=== PATIENT | female | born 1965 | race Caucasian/White ===

== ENCOUNTER 2019-06-15 23:18 | Emergency (ER) | payer OTHER ==
[2019-06-15 23:34] VITALS: TEMP 98.3; BMI 33.0
[2019-06-16] MEDS ORDERED: ONDANSETRON 4 MG/2 ML VIAL IVPB ONE (00:18)
[2019-06-16] MEDS ORDERED: MAG HYDROX/AL HYDROX/SIMETH -MYLANTA- ORAL SUSPENSION PO ONE (00:19)
[2019-06-16] MEDS ORDERED: KETOROLAC TROMETHAMINE 30 MG/1 ML VIAL IVPUSH ONE (00:19)
[2019-06-16] MEDS ORDERED: FAMOTIDINE 20 MG/50 ML IVPB 20 MG/50 ML MG IVPB ONE ×2 (00:19→00:28)
--- NOTE | 2019-06-16 00:26 | PDOC ---
History of Present Illness - General Chief Complaint: Pain, Acute Stated Complaint: ABDOMINAL PAIN - History of Present Illness Initial Comments: 06/16/19 00:21 54 yo F with h/o HTN, DM, who p/w epigastric pain. Patient reports 1 day of unremitting, burning, epigastric pain, worse with PO intake. Pt. also endorses nausea without vomiting, and 10 episodes of loose, watery, non bloody stools. No identifiable alleviators. Pain not improved with Motrin. Denies h/o similiar sx. Patient reports at home sick contact (child) with similar presentation. Patient also endorss tremors, lightheadedness, diaphoresis x 1 day. Denies h/o abdominal surgery. Patient denies BELL, vision change, palpitations, cough, wheezing, orthopena, PND , leg swelling/pain, F,C, CP, SOB, urinary complaints, vaginal discharge/ irritation/burning, hematuria, BPR, constipation, lightheadedness, weakness, sensory changes. PMHx: as noted above. Denies h/o CAD, NV, endoscopy. Does not f/w GI. ROS: as noted SHx: Denies Etoh, IVDA, tobacco use Allergies: NKDA Past History - Past Medical History Allergies/Adverse Reactions: Allergies Allergy/AdvReac Type Severity Reaction Status Date / Time No Known Allergies Allergy Verified 06/15/19 23:32 Home Medications: Ambulatory Orders NK [No Known Home Medication] 06/16/19 - Psycho Social/Smoking Cessation Hx Smoking History: Never smoked Have you smoked in the past 12 months: No Information on smoking cessation initiated: No Hx Alcohol Use: No Drug/Substance Use Hx: No Review of Systems - Review of Systems Comments:: 06/16/19 00:28 GENERAL/CONSTITUTIONAL: No fever or chills. No weakness. HEAD, EYES, EARS, NOSE AND THROAT: No change in vision. No ear pain or discharge. No sore throat. CARDIOVASCULAR: No chest pain or shortness of breath RESPIRATORY: No cough, wheezing, or hemoptysis. GASTROINTESTINAL: + nausea, abdominal pain, diarrhea. No constipation. GENITOURINARY: No dysuria, frequency, or change in urination. MUSCULOSKELETAL: No joint or muscle swelling or pain. No neck or back pain. SKIN: No rash NEUROLOGIC: No vertigo, loss of consciousness, or change in strength/sensation. ENDOCRINE: No increased thirst. No abnormal weight change HEMATOLOGIC/LYMPHATIC: No anemia, easy bleeding, or history of blood clots. ALLERGIC/IMMUNOLOGIC: No hives or skin allergy. *Physical Exam - Vital Signs Last Vital Signs Temp Pulse Resp BP Pulse Ox 98.3 F 92 H 20 137/74 94 L 06/15/19 23:33 06/15/19 23:33 06/15/19 23:33 06/15/19 23:33 06/15/19 23:33 - Physical Exam 06/16/19 00:29 GENERAL: Awake, alert, and fully oriented, in no acute distress HEAD: No signs of trauma, normocephalic, atraumatic EYES: PERRLA, EOMI, sclera anicteric, conjunctiva clear ENT: Hearing grossly normal, nares patent, oropharynx clear without exudates. Moist mucosa NECK: Normal ROM, supple, no lymphadenopathy, JVD, or masses LUNGS: No distress, speaks full sentences, clear to auscultation bilaterally HEART: Regular rate and rhythm, normal S1 and S2, no murmurs, rubs or gallops, peripheral pulses normal and equal bilaterally. ABDOMEN: + Epigastric ttp. Soft, NDS, normoactive bowel sounds. No guarding, no rebound. No masses. Neg CVA ttp. EXTREMITIES : Normal inspection, Normal range of motion, no edema. No clubbing or cyanosis NEUROLOGICAL: Cranial nerves II through XII grossly intact. Normal speech, normal gait, no focal sensorimotor deficits SKIN: Warm, Dry, normal turgor, no rashes or lesions noted ED Treatment Course - LABORATORY CBC & Chemistry Diagram: 06/16/19 00:05 06/16/19 00:05 Medical Decision Making - Medical Decision Making 06/16/19 00:25 54 yo F with h/o HTN, DM, who p/w epigastric pain. O2 94 % RA, HR 92, vitals otherwise wnl, AF, A&Ox3. Physical exam notable for epigastric ttp. Denies palpitations, cough, wheezing, leg swelling/pain, F,C, CP, SOB, urinary complaints, hematuria, BPR, constipation, lightheadedness, weakness, sensory changes. ACS/NV r/o. Will consider gastritis, enteritis, colitis, pancreatitis, biliary dz. Will provide IV hydration, anti-emetic, and analgesic control, and reassess. ED Course: Famotidine, Maloox, Toradol, Zofran 06/16/19 04:51 Laboratory Tests 06/16/19 06/16/19 06/16/19 00:05 00:05 00:05 WBC 10.0 Hgb 15.0 Hct 45.2 Plt Count 304 Sodium 139 Potassium 4.0 Anion Gap 5 L BUN 17.3 Lipase 104 Serum , Qual Negative 06/16/19 05:07 Patient pain improved, strep negative, symptoms improved. stable for d/c with return precautions. Discharge - Discharge Information Problems reviewed: Yes Clinical Impression/Diagnosis: Epigastric pain Condition: Stable - Admission No - Follow up/Referral Referrals: Festus Green [Primary Care Provider] - - Patient Discharge Instructions Patient Printed Discharge Instructions: DI for Epigastric Pain Additional Instructions: Please return to the emergency department with any new or worsening symptoms or concerns. Please follow up with your primary care physician within 72 hours. - Post Discharge Activity
[2019-06-16] MEDS ORDERED: KETOROLAC TROMETHAMINE 30 MG/1 ML VIAL ONE (00:28)
[2019-06-16] MEDS ORDERED: ONDANSETRON 4 MG/2 ML VIAL ONE (00:28)
[2019-06-16] MEDS ORDERED: MAG HYDROX/AL HYDROX/SIMETH 30 ML UNIT-DOSE CUP ONE (00:28)
--- NOTE | 2019-06-16 00:28 | PDOC ---
Attending Attestation - Resident Resident Name: Lawson Burks - ED Attending Attestation I have performed the following: I have examined & evaluated the patient, The case was reviewed & discussed with the resident, I agree w/resident's findings & plan - HPI HPI: 06/16/19 03:27 Pt comes with diarrhea and abd pain No other complaints. Pt comes with diarrhea and dry heaves. She caught the stomach virus from her grandson. afebrile here. Pt works as a personal service representative - Physicial Exam PE: 06/16/19 05:07 HEENT normal afebrile [id number] lungs CTA B abd soft NT ND + gassy BS No flank pain No rebound and no guarding. - Medical Decision Making 06/16/19 04:51 cbc and chem normal Flu culture is pending 06/16/19 05:07 Flu negative 06/16/19 05:08 Stable for D/C home Heart Score/ECG Review - ECG Intrepretation Rhythm: Regular Rhythm - Speedwell Speedwell: Normal - P and [place] Prominent R with upright T in V1 (true posterior HI): No Delta Wave(s) Present: No WPW: No - ST and T Early Repolarization: No Non Specific ST-T Wave changes: No - ECG Impressions Normal ECG: Yes Non-specific ST Elevation: No Ischemic Changes: No Bradycardia: No Torsades júnior Pointes: No
[2019-06-16 01:20] LABS: BASO % 0.2 % (0-2.0); EOS % 0.4 % (0-4.5); HEMATOCRIT 45.2 % (32.4-45.2); LYMPH % 5.5 % (8-40); MCH 30.3 pg (25.7-33.7); MCHC 33.1 g/dl (32.0-36.0); MEAN CELL VOLUME 91.6 fl (80-96); MEAN PLT VOLUME 9.3 fl (7.5-11.1); MONO % 5.1 % (3.8-10.2); NEUT % 88.8 % (42.8-82.8); PLATELET COUNT 304 K/MM3 (134-434); RBC 4.93 M/mm3 (3.60-5.2); RDW 13.6 % (11.6-15.6)
[2019-06-16 01:46] LABS: BILIRUBIN,TOTAL 0.6 mg/dL (0.2-1); BLOOD UREA NITROGEN 17.3 mg/dL (7-18); CALCIUM 9.5 mg/dL (8.5-10.1); CREATININE 0.7 mg/dL (0.55-1.3); TOT PROT 8.4 g/dl (6.4-8.2)
[2019-06-16 04:23] VITALS: BP 107/65; PULSE 76
--- NOTE | 2019-06-16 10:47 | EKG ---
Test Reason : Blood Pressure : / mmHG Vent. Rate : 087 BPM Atrial Rate : 087 BPM P-R Int : 164 ms QRS Dur : 090 ms QT Int : 370 ms P-R-T Axes : 037 020 004 degrees QTc Int : 445 ms NORMAL SINUS RHYTHM NONSPECIFIC ST DEPRESSION WHEN COMPARED WITH ECG OF 17-MAR-2016 09:38, NO SIGNIFICANT CHANGE WAS FOUND Confirmed by MERYL FERGUSON MD ([id number]) on 06/16/2019 10:47:28 AM Referred By: Confirmed By:MERYL FERGUSON MD
== END 2019-06-16 05:13 | disposition home or self-care (01) ==
LOC: JER 23:18
PROC: 3E033GC Introduction of Other Therapeutic Substance into Peripheral Vein, Percutaneous Approach (ICD-10-PCS; principal; 2019-06-15)
PROC: 3E033GC Introduction of Other Therapeutic Substance into Peripheral Vein, Percutaneous Approach (ICD-10-PCS; 2019-06-15)
PROC: 3E0333Z Introduction of Anti-inflammatory into Peripheral Vein, Percutaneous Approach (ICD-10-PCS; 2019-06-15)
DX: R10.13 Epigastric pain (principal); I10 Essential (primary) hypertension; E11.9 Type 2 diabetes mellitus without complications
CPT/HCPCS: 36415; 80053; 82550; 83690; 84484; 84703; 85025; 87804; 93005; 93010; 96365; 96375; 99282-25

== ENCOUNTER 2021-11-18 09:27 | Day surgery (SDC) | payer OTHER ==
[2021-11-18] MEDS ORDERED: BUPIVACAINE HCL/PF 2.5 MG/ML - 30 ML VIAL IJ ONE (09:54)
[2021-11-18] MEDS ORDERED: MIDAZOLAM HCL 2 MG/2 ML SINGLE DOSE VIAL ONE (10:46)
[2021-11-18] MEDS ORDERED: PROPOFOL 20 ML ONE ×2 (10:54→11:13)
[2021-11-18] MEDS ORDERED: ceFAZolin SODIUM 1 GM VIAL ONE (10:59)
[2021-11-18] MEDS ORDERED: DEXAMETHASONE SOD PHOSPHATE 4 MG/1 ML VIAL ONE (11:03)
[2021-11-18] MEDS ORDERED: ONDANSETRON 4 MG/2 ML VIAL ONE (11:03)
[2021-11-18 12:09] VITALS: TEMP 97.7
[2021-11-18 12:44] VITALS: BP 123/78; PULSE 81
== END 2021-11-18 12:59 | disposition home or self-care (01) ==
LOC: FASU 09:27
PROVIDERS: ATTEND Orthopaedic Surgery Hand Surgery
PROC: 0RGW07Z Fusion of Right Finger Phalangeal Joint with Autologous Tissue Substitute, Open Approach (ICD-10-PCS; principal; 2021-11-18 11:05)
DX: M19.041 Primary osteoarthritis, right hand (principal)
CPT/HCPCS: 73130-TC-RT-FY; 82962

== ENCOUNTER 2022-04-14 20:16 | Emergency (ER) | payer OTHER ==
[2022-04-14 21:04] VITALS: BP 109/75; PULSE 104; RESP 20; TEMP 98.3; BMI 33.2
[2022-04-14] MEDS ORDERED: LIDOCAINE PATCH REMOVAL MC SCH (22:00)
[2022-04-14] MEDS ORDERED: ACETAMINOPHEN 500 MG TABLET (FP) PO ONE (22:29)
[2022-04-14] MEDS ORDERED: METHOCARBAMOL 500 MG TABLET PO ONE (22:29)
[2022-04-14] MEDS ORDERED: LIDOCAINE 5% TOPICAL PATCH TP ONE (22:29)
[2022-04-14] MEDS ORDERED: METHOCARBAMOL 500 MG TABLET ONE (22:48)
[2022-04-14] MEDS ORDERED: ACETAMINOPHEN 325 MG TABLET (FP) ONE (22:49)
[2022-04-14] MEDS ORDERED: LIDOCAINE 5% TOPICAL PATCH ONE (22:49)
== END 2022-04-15 02:44 | disposition home or self-care (01) ==
LOC: JER 20:16
DX: S39.012A Strain of muscle, fascia and tendon of lower back, initial encounter (principal); X50.0XXA Overexertion from strenuous movement or load, initial encounter
CPT/HCPCS: 72131-TC; 99284-25

== ENCOUNTER 2022-06-19 15:31 | Emergency (ER) | payer OTHER ==
[2022-06-19 15:42] VITALS: BMI 34.0
[2022-06-19] MEDS ORDERED: MAG HYDROX/AL HYDROX/SIMETH 30 ML UNIT-DOSE CUP PO ONE (16:47)
[2022-06-19] MEDS ORDERED: ONDANSETRON 4 MG/2 ML VIAL IVPUSH ONE (16:47)
[2022-06-19] MEDS ORDERED: FAMOTIDINE 20 MG/50 ML IVPB 20 MG/50 ML MG IVPB ONE ×2 (16:47→17:25)
[2022-06-19] MEDS ORDERED: LACTATED RINGERS SOLUTION 1,000 ML/1,000 ML INFUS.BAG IV SCH (17:00)
[2022-06-19] MEDS ORDERED: MAG HYDROX/AL HYDROX/SIMETH 30 ML UNIT-DOSE CUP ONE (17:25)
[2022-06-19] MEDS ORDERED: ONDANSETRON 4 MG/2 ML VIAL ONE (17:25)
[2022-06-19 17:31] LABS: BASO % 0.3 % (0-2.0); EOS % 0.5 % (0-4.5); HEMATOCRIT 48.2 % (32.4-45.2); HEMOGLOBIN 15.9 GM/dL (10.7-15.3); LYMPH % 6.8 % (8-40); MCH 30.1 pg (25.7-33.7); MEAN CELL VOLUME 91.1 fl (80-96); MEAN PLT VOLUME 8.7 fl (7.5-11.1); MONO % 4.1 % (3.8-10.2); NEUT % 88.3 % (42.8-82.8); PLATELET COUNT 313 10^3/uL (134-434); RBC 5.29 M/mm3 (3.60-5.2); RDW 14.1 % (11.6-15.6); WHITE BLOOD COUNT 9.1 K/mm3 (4.0-10.0)
[2022-06-19 17:59] LABS: BILIRUBIN,TOTAL 0.5 mg/dL (0.2-1); CREATININE 0.6 mg/dL (0.55-1.3)
[2022-06-19 18:27] VITALS: BP 112/49; PULSE 80; RESP 16; TEMP 98.3
== END 2022-06-19 18:56 | disposition home or self-care (01) ==
LOC: JER 15:31
PROC: 3E033GC Introduction of Other Therapeutic Substance into Peripheral Vein, Percutaneous Approach (ICD-10-PCS; principal; 2022-06-19)
PROC: 3E033GC Introduction of Other Therapeutic Substance into Peripheral Vein, Percutaneous Approach (ICD-10-PCS; 2022-06-19)
DX: R11.0 Nausea (principal); R10.13 Epigastric pain; R19.7 Diarrhea, unspecified
CPT/HCPCS: 0241U-QW; 36415; 80053; 83690; 84484; 85025; 93005; 93010; 99284-25

== ENCOUNTER 2023-06-17 19:51 | Emergency (ER) | payer OTHER ==
[2023-06-17 19:58] VITALS: BP 120/70; PULSE 97; RESP 18; TEMP 98; BMI 34.0
[2023-06-17] MEDS ORDERED: ONDANSETRON 4 MG/2 ML VIAL IVPB ONE (20:29)
[2023-06-17] MEDS ORDERED: FAMOTIDINE 20 MG/50 ML IVPB 20 MG/50 ML MG IVPB ONE ×2 (20:30→20:43)
[2023-06-17] MEDS ORDERED: ACETAMINOPHEN 1000 MG/100 ML BAG IVPB ONE (20:30)
[2023-06-17] MEDS ORDERED: LACTATED RINGERS SOLUTION 1000 ML INFUS.BAG IV ONE (20:30)
[2023-06-17] MEDS ORDERED: ONDANSETRON 4 MG/2 ML VIAL ONE (20:43)
[2023-06-17] MEDS ORDERED: ACETAMINOPHEN INJECTION 100 ML IVPB ONE (20:43)
[2023-06-17 21:06] LABS: BASO % 0.8 % (0-2.0); EOS % 0.7 % (0-4.5); HEMATOCRIT 44.9 % (32.4-45.2); HEMOGLOBIN 15.4 GM/dL (10.7-15.3); LYMPH % 18.9 % (8-40); MCHC 34.2 g/dl (32.0-36.0); MEAN CELL VOLUME 90.6 fl (80-96); MEAN PLT VOLUME 8.5 fl (7.5-11.1); MONO % 6.4 % (3.8-10.2); NEUT % 73.2 % (42.8-82.8); PLATELET COUNT 322 10^3/uL (134-434); RBC 4.96 M/mm3 (3.60-5.2); RDW 13.6 % (11.6-15.6); WHITE BLOOD COUNT 9.7 K/mm3 (4.0-10.0)
[2023-06-17 21:27] LABS: BLOOD UREA NITROGEN 15.2 mg/dL (7-18); MAGNESIUM 2.1 mg/dL (1.8-2.4)
[2023-06-17 21:30] LABS: CREATININE 0.7 mg/dL (0.55-1.3)
[2023-06-17 21:31] LABS: TOT PROT 8.3 g/dl (6.4-8.2)
[2023-06-17 21:32] LABS: BILIRUBIN,TOTAL 0.4 mg/dL (0.2-1)
== END 2023-06-17 22:37 | disposition home or self-care (01) ==
LOC: JER 19:51 → JERFT 19:51
PROC: 3E033GC Introduction of Other Therapeutic Substance into Peripheral Vein, Percutaneous Approach (ICD-10-PCS; principal; 2023-06-17)
PROC: 3E033GC Introduction of Other Therapeutic Substance into Peripheral Vein, Percutaneous Approach (ICD-10-PCS; 2023-06-17)
PROC: 3E033GC Introduction of Other Therapeutic Substance into Peripheral Vein, Percutaneous Approach (ICD-10-PCS; 2023-06-17)
DX: R10.13 Epigastric pain (principal); R11.2 Nausea with vomiting, unspecified; Z20.822 Contact with and (suspected) exposure to COVID-19
CPT/HCPCS: 0241U-QW; 36415; 80053; 83735; 84100; 84484; 85025; 93005; 93010; 99284-25

== ENCOUNTER 2023-06-18 06:53 | Emergency (ER) | payer OTHER ==
[2023-06-18 07:19] VITALS: BP 118/80; PULSE 89; RESP 20; TEMP 98.6; BMI 33.5
[2023-06-18] MEDS ORDERED: levETIRAcetam 500 MG TABLET (FP) PO ONE (09:08)
[2023-06-18] MEDS ORDERED: ENOXAPARIN NA (PORCINE) 40 MG/0.4 ML DISP.SYRIN SQ ONE (09:08)
[2023-06-18] MEDS ORDERED: SODIUM CHLORIDE 1,000 ML IV STA (09:11)
[2023-06-18] MEDS ORDERED: ONDANSETRON *ODT* 4 MG TABLET SL ONE (09:16)
[2023-06-18] MEDS ORDERED: ONDANSETRON *ODT* 4 MG TABLET ONE (09:22)
== END 2023-06-18 13:20 | disposition home or self-care (01) ==
LOC: JER 06:53
PROC: 3E0337Z Introduction of Electrolytic and Water Balance Substance into Peripheral Vein, Percutaneous Approach (ICD-10-PCS; principal; 2023-06-18)
DX: R11.2 Nausea with vomiting, unspecified (principal); R10.13 Epigastric pain
CPT/HCPCS: 82962; 93005; 93010; 99284-25; Q0162

== ENCOUNTER 2024-02-25 22:38 | Observation (INO) | payer OTHER ==
[2024-02-25 22:48] VITALS: BMI 34.0
[2024-02-26] MEDS ORDERED: ACETAMINOPHEN 325 MG TABLET (FP) ONE (00:23)
[2024-02-26] MEDS: ACETAMINOPHEN 1000 MG/100 ML BAG IVPB ONE (00:24)
[2024-02-26] MEDS: ACETAMINOPHEN 500 MG TABLET (FP) PO ONE (00:30)
[2024-02-26] MEDS ORDERED: METHOCARBAMOL 500 MG TABLET ONE (00:31)
[2024-02-26] MEDS ORDERED: LIDOCAINE 4% PATCH TP ONE (00:32)
[2024-02-26] MEDS: METHOCARBAMOL 500 MG TABLET PO ONE (00:36)
[2024-02-26] MEDS: LIDOCAINE 4% PATCH TP ONE (00:37)
[2024-02-26] MEDS ORDERED: DEXAMETHASONE 4 MG TABLET (FP) ONE (01:41)
[2024-02-26] MEDS: DEXAMETHASONE 4 MG TABLET (FP) PO ONE (01:43)
[2024-02-26] MEDS ORDERED: oxyCODONE HCL 5 MG TABLET ONE (02:57)
[2024-02-26] MEDS ORDERED: ONDANSETRON *ODT* 4 MG TABLET ONE (02:57)
[2024-02-26] MEDS: ONDANSETRON *ODT* 4 MG TABLET SL ONE (03:01)
[2024-02-26] MEDS: oxyCODONE HCL 5 MG TABLET PO ONE (03:01)
[2024-02-26 05:19] LABS: BASO % 0.4 % (0-2.0); EOS % 0.4 % (0-4.5); HEMATOCRIT 45.2 % (32.4-45.2); HEMOGLOBIN 15.2 GM/dL (10.7-15.3); LYMPH % 14.1 % (8-40); MCH 30.7 pg (25.7-33.7); MCHC 33.7 g/dl (32.0-36.0); MEAN CELL VOLUME 91.1 fl (80-96); MEAN PLT VOLUME 8.8 fl (7.5-11.1); MONO % 2.4 % (3.8-10.2); NEUT % 82.7 % (42.8-82.8); PLATELET COUNT 286 10^3/uL (134-434); RBC 4.96 M/mm3 (3.60-5.2); RDW 13.7 % (11.6-15.6); WHITE BLOOD COUNT 8.3 K/mm3 (4.0-10.0)
[2024-02-26 05:50] LABS: POTASSIUM 4.4 mmol/L (3.5-5.1)
[2024-02-26 05:51] LABS: CALCIUM 9.6 mg/dL (8.5-10.1)
[2024-02-26 05:52] LABS: ALBUMIN 4.2 g/dl (3.4-5.0); BLOOD UREA NITROGEN 15.9 mg/dL (7-18)
[2024-02-26 05:56] LABS: BILIRUBIN,TOTAL 0.5 mg/dL (0.2-1); CREATININE 0.7 mg/dL (0.55-1.3)
[2024-02-26] MEDS ORDERED: ACETAMINOPHEN 325 MG TABLET (FP) PO PRN (09:53)
[2024-02-26] MEDS ORDERED: KETOROLAC TROMETHAMINE 30 MG/1 ML VIAL IVPUSH PRN (09:53)
[2024-02-26] MEDS ORDERED: LOSARTAN POTASSIUM 50 MG TABLET ONE (10:59)
[2024-02-26] MEDS ORDERED: HEPARIN NA (PORCINE) 5,000 UNITS/ML 1ML VIAL ONE (10:59)
[2024-02-26] MEDS: HEPARIN NA (PORCINE) 5,000 UNITS/ML 1ML VIAL SQ SCH (11:04)
[2024-02-26] MEDS: LOSARTAN POTASSIUM 50 MG TABLET PO SCH (11:04)
[2024-02-26] MEDS: LIDOCAINE 5% TOPICAL PATCH TP ONE ×2 (11:07→22:15)
[2024-02-26] MEDS: INSULIN ASPART SLIDING SCALE (NOVOLOG) 1 VIAL SQ SCH (12:28)
[2024-02-26] MEDS: LIDOCAINE PATCH REMOVAL MC ONE (13:58)
[2024-02-26] MEDS: GABAPENTIN 100 MG CAPSULE PO SCH (13:58)
[2024-02-26] MEDS: ATORVASTATIN CA 20 MG TABLET (FP) PO SCH (22:16)
[2024-02-27] MEDS: LIDOCAINE PATCH REMOVAL MC ONE (10:23)
[2024-02-27 14:06] VITALS: BP 112/61; PULSE 65; RESP 20; TEMP 97.7
== END 2024-02-27 16:20 | disposition home or self-care (01) ==
LOC: JER 22:38 → JERBED 02-26 04:24 → J7W 02-26 11:17
PROVIDERS: ADMIT Family Medicine; ATTEND Family Medicine
PROC: 3E023GC Introduction of Other Therapeutic Substance into Muscle, Percutaneous Approach (ICD-10-PCS; principal; 2024-02-26)
DX: M54.30 Sciatica, unspecified side (principal); E11.9 Type 2 diabetes mellitus without complications; E78.00 Pure hypercholesterolemia, unspecified; R26.2 Difficulty in walking, not elsewhere classified; Z91.013 Allergy to seafood
CPT/HCPCS: 36415; 72131-TC; 80053; 82962; 85025; 96372; 97116-GP; 97161-GP; 99285-25; G0378; J1644; Q0162

== ENCOUNTER 2024-05-27 23:38 | Emergency (ER) | payer OTHER ==
[2024-05-27 23:44] VITALS: BP 134/77; PULSE 90; RESP 17; TEMP 98; BMI 32.8
[2024-05-28] MEDS ORDERED: METHOCARBAMOL 500 MG TABLET ONE (00:22)
[2024-05-28] MEDS ORDERED: ACETAMINOPHEN 500 MG TABLET (FP) ONE (00:22)
[2024-05-28] MEDS ORDERED: LIDOCAINE 4% PATCH TP ONE (00:23)
[2024-05-28] MEDS ORDERED: KETOROLAC TROMETHAMINE 30 MG/1 ML VIAL ONE (00:23)
[2024-05-28] MEDS: METHOCARBAMOL 500 MG TABLET PO ONE (00:25)
[2024-05-28] MEDS: KETOROLAC TROMETHAMINE 30 MG/1 ML VIAL IM ONE (00:25)
[2024-05-28] MEDS: ACETAMINOPHEN 500 MG TABLET (FP) PO ONE (00:26)
[2024-05-28] MEDS: LIDOCAINE 5% TOPICAL PATCH TP ONE (00:26)
[2024-05-28] MEDS ORDERED: LIDOCAINE PATCH REMOVAL MC SCH (22:00)
== END 2024-05-28 01:05 | disposition home or self-care (01) ==
LOC: JER 23:38
PROC: 3E0133Z Introduction of Anti-inflammatory into Subcutaneous Tissue, Percutaneous Approach (ICD-10-PCS; principal; 2024-05-28)
DX: M19.011 Primary osteoarthritis, right shoulder (principal); M25.511 Pain in right shoulder
CPT/HCPCS: 73030-TC-RT-FY; 99284-25